=== PATIENT | male | born 1990 | race Hispanic/Latino ===

== ENCOUNTER 2019-05-31 22:22 | Emergency (ER) | payer BC ==
[2019-05-31] MEDS ORDERED: SIMETHICONE 80 MG TAB ONE (23:08)
[2019-06-01] MEDS ORDERED: NA CHLORIDE 0.9% 1,000 ML ONE (00:28)
[2019-06-01 00:53] LABS: Potassium 3.6 mmol/L (3.5-5.1)
[2019-06-01 00:57] LABS: Absolute Lymphocytes (CBC) 2.8 K/uL (0.7-4.9); Hematocrit 48.5 % (39.6-49.0); Lymphocytes % 34.6 % (15.3-44.8); MPV 8.4 fL (7.6-11.3); RBC Red Blood Cell Count 5.81 M/uL (4.33-5.43)
--- NOTE | 2019-06-01 02:18 | EDPHYS ---
Physician Documentation [facility] Name: Parish Lim Age: 28 yrs Sex: Male : 1990 Arrival Date: 05/31/2019 Time: 22:25 Bed 20 Private MD: ED Physician Vahid Tinsley HPI: 05/31 23:33 This 28 yrs old Male presents to ER via Ambulatory with complaints of Chest snw Pain, Chest Pressure, Shortness Of Breath. 23:33 Onset: The symptoms/episode began/occurred suddenly, while riding in vehicle on the way snw back from [place] eating [place]. Associated signs and symptoms: Pertinent positives: shortness of breath, diaphoresis. Modifying factors: The patient symptoms are alleviated by nothing, the patient symptoms are aggravated by nothing. The patient has not experienced similar symptoms in the past. It is unknown whether or not the patient has recently seen a physician. pt with laminectomy a few months ago, not sedentary but activity has been decreased, denies edema, leg pain, no significant family hx. Historical: - Allergies: 22:31 No Known Allergies; rv - PMHx: 22:31 None; rv - PSHx: 22:31 back sx; rv - Immunization history:: Adult Immunizations up to date, Last tetanus immunization: unknown. - Coronavirus screen:: The patient has NOT traveled to [place], [place], or [place] in the past 14 days. Proceed with normal triage process as indicated. The patient has NOT had contact with known/suspected case of Coronavirus? Proceed with normal triage procedures. - Social history:: Smoking status: Patient denies any tobacco usage or history of. - Ebola Screening: : No symptoms or risks identified at this time. ROS: 23:32 Constitutional: Negative for fever, chills, and weight loss, Eyes: Negative for injury, snw pain, redness, and discharge, ENT: Negative for injury, pain, and discharge, Neck: Negative for injury, pain, and swelling. 23:32 Abdomen/GI: Negative for abdominal pain, nausea, vomiting, diarrhea, and constipation, Back: Negative for injury and pain, : Negative for injury, bleeding, discharge, and swelling, MS/Extremity: Negative for injury and deformity, Neuro: Negative for headache, weakness, numbness, tingling, and seizure. 23:32 Cardiovascular: Positive for chest pain. 23:32 Respiratory: Positive for shortness of breath. 23:32 Skin: Positive for diaphoresis. Exam: 23:31 Head/Face: Normocephalic, atraumatic. Eyes: Pupils equal round and reactive to light, snw extra-ocular motions intact. Lids and lashes normal. Conjunctiva and sclera are non-icteric and not injected. Cornea within normal limits. Periorbital areas with no swelling, redness, or edema. ENT: Nares patent. No nasal discharge, no septal abnormalities noted. Tympanic membranes are normal and external auditory canals are clear. Oropharynx with moderate redness, no swelling, or masses, exudates, or evidence of obstruction, uvula midline. Mucous membranes moist. Neck: Trachea midline, no thyromegaly or masses palpated, and no cervical lymphadenopathy. Supple, full range of motion without nuchal rigidity, or vertebral point tenderness. No Meningismus. Chest/axilla: Normal chest wall appearance and motion. Nontender with no deformity. No lesions are appreciated. Cardiovascular: Regular rate and rhythm with a normal S1 and S2. No gallops, murmurs, or rubs. Normal PMI, no JVD. No pulse deficits. Respiratory: Lungs have equal breath sounds bilaterally, clear to auscultation and percussion. No rales, rhonchi or wheezes noted. No increased work of breathing, no retractions or nasal flaring. Abdomen/GI: Soft, non-tender, with normal bowel sounds. No distension or tympany. No guarding or rebound. No evidence of tenderness throughout. Back: No spinal tenderness. No costovertebral tenderness. Full range of motion. Skin: Warm, dry with normal turgor. Normal color with no rashes, no lesions, and no evidence of cellulitis. MS/ Extremity: Pulses equal, no cyanosis. Neurovascular intact. Full, normal range of motion. Neuro: Awake and alert, GCS 15, oriented to person, place, time, and situation. Cranial nerves II-XII grossly intact. Motor strength 5/5 in all extremities. Sensory grossly intact. Cerebellar exam normal. Normal gait. Psych: Awake, anxious, with orientation to person, place and time. Behavior, mood, and affect are within normal limits. 23:31 Constitutional: The patient appears awake, anxious, restless. Vital Signs: 22:30 BP 141 / 98; Pulse 79; Resp 18; Temp 98.2; Pulse Ox 99% ; Weight 86.18 kg; Height 5 ft. rv 11 in. (180.34 cm); Pain 3/10; 06/01 00:10 BP 128 / 82; Pulse 64; Resp 18; Pulse Ox 97% on R/A; wh 02:30 BP 126 / 84; Pulse 66; Resp 16; Pulse Ox 100% on R/A; rv 05/31 22:30 Body Mass Index 26.50 (86.18 kg, 180.34 cm) rv MDM: 05/31 22:38 Patient medically screened. snw 06/01 02:26 Data reviewed: vital signs, nurses notes. Data interpreted: Pulse oximetry: on room air snw is 97 %. Interpretation: normal. Counseling: I had a detailed discussion with the patient and/or guardian regarding: the historical points, exam findings, and any diagnostic results supporting the discharge/admit diagnosis, lab results, radiology results, the need for outpatient follow up, to return to the emergency department if symptoms worsen or persist or if there are any questions or concerns that arise at home. Response to treatment: the patient's symptoms have markedly improved after treatment. Special discussion: Based on the patient's history, exam, and Dx evaluation, there is no indication for emergent intervention or inpatient Tx. It is understood by the patient/guardian that if the Sx's persist or worsen they need to return immediately for re-evaluation. Based on the history and exam findings, there is no indication for further emergent testing or inpatient evaluation. I discussed with the patient/guardian the need to see the primary care provider for further evaluation of the symptoms. 05/31 22:56 Order name: Flu; Complete Time: 00:29 05/31 22:56 Order name: Strep; Complete Time: 00:29 rv 06/01 00:13 Order name: CBC with Diff; Complete Time: 01:03 snw 06/01 00:13 Order name: Chem 7; Complete Time: 00:54 snw 06/01 00:28 Order name: Throat Culture EDMS 06/01 01:49 Order name: Urine Dipstick--Ancillary (enter results) em1 05/31 22:56 Order name: Chest Pa And Lat (2 Views) XRAY rv 05/31 22:56 Order name: EKG; Complete Time: 22:57 rv 05/31 22:56 Order name: EKG - Nurse/Tech; Complete Time: 23:03 06/01 00:13 Order name: CT Chest For PE Angio snw Administered Medications: 05/31 23:18 Drug: Simethicone 240 mg Route: PO; 06/01 02:31 Follow up: Response: No adverse reaction rv 00:29 Drug: NS 0.9% 1000 ml Route: IV; Rate: 1 bolus; Site: left antecubital; 02:31 Follow up: IV Status: Completed infusion; IV Intake: 1000ml rv Disposition: 02:46 Co-signature as Attending Physician, Vahid Tinsley MD. rn Disposition: 06/01/19 02:18 Discharged to Home. Impression: Gas pain, Chest pain, unspecified. - Condition is Stable. - Discharge Instructions: Nonspecific Chest Pain, Intestinal Gas and Gas Pains, Pediatric. - Prescriptions for Gas- X Extra Strength - take 1 unit by ORAL route 1-3 times daily; 1 box. - Work release form, Medication Reconciliation Form, Thank You Letter, Antibiotic Education, Prescription Opioid Use form. - Follow up: Emergency Department; When: As needed; Reason: Worsening of condition. Follow up: Private Physician; When: 1 week; Reason: Recheck today's complaints, Continuance of care, Re-evaluation by your physician. Signatures: Dispatcher [employer] EDIA Susan Stiles, SUPERVISOR SALVAGE-C SUPERVISOR SALVAGE-Csnw Vahid Tinsley MD MD rn [place], Winsy Luke Oropeza RN RN rv Corrections: (The following items were deleted from the chart) 02:32 02:18 06/01/2019 02:18 Discharged to Home. Impression: Gas pain; Chest pain, rv unspecified. Condition is Stable. Forms are Medication Reconciliation Form, Thank You Letter, Antibiotic Education, Prescription Opioid Use. Follow up: Emergency Department; When: As needed; Reason: Worsening of condition. Follow up: Private Physician; When: 1 week; Reason: Recheck today's complaints, Continuance of care, Re-evaluation by your physician. snw
--- NOTE | 2019-06-01 02:18 | ER ---
Nurse's Notes [facility] Name: Parish Lim Age: 28 yrs Sex: Male : 1990 Arrival Date: 05/31/2019 Time: 22:25 Bed 20 Private MD: Diagnosis: Gas pain;Chest pain, unspecified Presentation: 05/31 22:28 Presenting complaint: Patient states: chest pain started 1330, aching and burning, rv palms are sweaty. starts feeling dizziness. left hand is numb. 2/10 pain scale. Transition of care: patient was not received from another setting of care. Onset of symptoms was May 31, 2019 at 20:30. Risk Assessment: Do you want to hurt yourself or someone else? Patient reports no desire to harm self or others. Initial Sepsis Screen: Does the patient meet any 2 criteria? No. Patient's initial sepsis screen is negative. Does the patient have a suspected source of infection? No. Patient's initial sepsis screen is negative. Care prior to arrival: None. 22:28 Method Of Arrival: Ambulatory rv 22:28 Acuity: KOJO 4 rv Historical: - Allergies: 22:31 No Known Allergies; rv - PMHx: 22:31 None; rv - PSHx: 22:31 back sx; rv - Immunization history:: Adult Immunizations up to date, Last tetanus immunization: unknown. - Coronavirus screen:: The patient has NOT traveled to [place], [place], or [place] in the past 14 days. Proceed with normal triage process as indicated. The patient has NOT had contact with known/suspected case of Coronavirus? Proceed with normal triage procedures. - Social history:: Smoking status: Patient denies any tobacco usage or history of. - Ebola Screening: : No symptoms or risks identified at this time. Screenin/27 00:00 Abuse screen: Denies threats or abuse. Denies injuries from another. Nutritional wh screening: No deficits noted. Tuberculosis screening: No symptoms or risk factors identified. Fall Risk None identified. Assessment: 05/31 23:45 General: Appears in no apparent distress. Behavior is calm, cooperative, appropriate wh for age. Pain: Complains of pain in chest Pain does not radiate. Pain currently is 2 out of 10 on a pain scale. Quality of pain is described as burning, Pain began 1 day ago. Neuro: Level of Consciousness is awake, alert, obeys commands, Oriented to person, place, time, situation, Appropriate for age. Cardiovascular: Heart tones S1 S2 Rhythm is regular. Respiratory: Airway is patent Respiratory effort is even, unlabored, Respiratory pattern is regular, symmetrical, Breath sounds are clear bilaterally. GI: Abdomen is flat, non-distended. : No signs and/or symptoms were reported regarding the genitourinary system. EENT: No signs and/or symptoms were reported regarding the EENT system. Derm: Skin is intact, is healthy with good turgor, Skin is pink, warm \T\ dry. normal. Musculoskeletal: Circulation, motion, and sensation intact. 06/01 00:10 Reassessment: Patient appears in no apparent distress at this time. No changes from previously documented assessment. Patient and/or family updated on plan of care and expected duration. Pain level reassessed. Patient is alert, oriented x 3, equal unlabored respirations, skin warm/dry/pink. 02:31 Reassessment: Patient appears in no apparent distress at this time. Patient states rv feeling better. Patient states symptoms have improved. Vital Signs: 05/31 22:30 BP 141 / 98; Pulse 79; Resp 18; Temp 98.2; Pulse Ox 99% ; Weight 86.18 kg; Height 5 ft. rv 11 in. (180.34 cm); Pain 3/10; 06/01 00:10 BP 128 / 82; Pulse 64; Resp 18; Pulse Ox 97% on R/A; wh 02:30 BP 126 / 84; Pulse 66; Resp 16; Pulse Ox 100% on R/A; rv 05/31 22:30 Body Mass Index 26.50 (86.18 kg, 180.34 cm) rv ED Course: 05/31 22:25 Patient arrived in ED. ag5 22:30 Triage completed. rv 22:32 Susan Stiles FNP-C [facility]. snw 22:32 Vahid Tinsley MD is Attending Physician. snw 22:34 Yen Jason is Primary Nurse. wh 23:39 Chest Pa And Lat (2 Views) XRAY In Process Unspecified. EDMS 06/01 00:00 Arm band placed on right wrist. wh 00:00 Patient has correct armband on for positive identification. Bed in low position. Call light in reach. Side rails up X 1. Pulse ox on. NIBP on. 00:00 Patient maintains SpO2 saturation greater than 95% on room air. 00:00 No provider procedures requiring assistance completed. Inserted saline lock: 20 gauge rv in left antecubital area, using aseptic technique. ,using aseptic technique. by yen Blood collected. 01:48 CT Chest For PE Angio In Process Unspecified. EDMS 02:32 IV discontinued, intact, bleeding controlled, No redness/swelling at site. Pressure rv dressing applied. Administered Medications: 05/31 23:18 Drug: Simethicone 240 mg Route: PO; 06/01 02:31 Follow up: Response: No adverse reaction rv 00:29 Drug: NS 0.9% 1000 ml Route: IV; Rate: 1 bolus; Site: left antecubital; 02:31 Follow up: IV Status: Completed infusion; IV Intake: 1000ml rv Intake: 02:31 IV: 1000ml; Total: 1000ml. rv Outcome: 02:18 Discharge ordered by . snw 02:32 Discharged to home ambulatory. rv 02:32 Condition: improved 02:32 Discharge instructions given to patient, Instructed on discharge instructions, follow up and referral plans. medication usage, Demonstrated understanding of instructions, follow-up care, medications, Prescriptions given X 1. 02:32 Patient left the ED. rv Signatures: Dispatcher [employer] EDIL Susan Stiles, PROJECT ADMINISTRATOR-C PROJECT ADMINISTRATOR-Yen Castro Luke Oropeza RN RN Elsie Dee [id number]
[2019-06-01 02:39] VITALS: TEMP 98.2
[2019-06-01 02:41] VITALS: BP 126/84; O2SAT 100
[2019-06-01 03:07] LABS: Urine Blood NEGATIVE (NEG); Urine Glucose NEGATIVE (NEG); Urine Protein NEGATIVE (NEG); Urine Specific Gravity 1.025 (1.005-1.030)
--- NOTE | 2019-06-01 06:56 | EKG ---
Test Date: 2019-05-31 Test Time: 22:38:38 Periodicals Library Assistant: LUKE MEASUREMENT RESULTS: Intervals: Rate: 75 AL: 192 QRSD: 100 QT: 370 QTc: 413 [place]: P: 53 AL: 192 QRS: 86 T: 70 INTERPRETIVE STATEMENTS: Normal sinus rhythm Normal ECG No previous ECG available for comparison Electronically Signed On 06-01-19 06:55:20 FLUE GAS ANALYST by Benny Gonzáles
--- NOTE | 2019-06-01 08:08 | RAD REPORT ---
EXAM DESCRIPTION: Azael Cates (2 Views)05/31/2019 11:40 pm CLINICAL HISTORY: Chest pain COMPARISON: None FINDINGS: The lungs appear clear of acute infiltrate. The heart is normal size IMPRESSION: No acute abnormalities displayed
--- NOTE | 2019-06-01 12:08 | RAD REPORT ---
EXAM DESCRIPTION: CT - Chest For Pe Angio - 06/01/2019 5:19 am CLINICAL HISTORY: 28-year-old male with chest pain. TECHNIQUE: Following the administration of intravenous contrast, multiple high-resolution axial imag es of the chest were performed followed by sagittal and coronal reconstructed images. Coronal oblique MIP images were also performed. The CT study is performed according to ALARA (as low as reasonably a chievable) or ALARA/IMAGE GENTLY, with automatic adjustment of mA and/or kV according to patient size . Performed on: 06/01/2019 at 1:23 AM COMPARISON: None FINDINGS: There is satisfactory visualization and contrast opacification of pulmonary arteries. No definite intra-arterial filling defects are identified to suggest acute or chronic pulmonary embolis m. The thoracic aorta is normal in caliber and contour without evidence of aneurysm or dissection. The lungs are well expanded and are clear. There is no evidence of a pneumothorax. There are no pleur al effusions. The heart is normal in size. There is no pericardial effusion. There is no evidence of hilar, mediastinal or axillary lymphadenopathy. No acute osseous abnormality is identified. The visualized upper abdominal structures are unremarkable. IMPRESSION: 1. No CT evidence to suggest acute or chronic pulmonary embolism, aortic aneurysm or aor tic dissection. 2. No evidence of acute intrathoracic disease. Electronically signed by: Sarah Dickens DO 06/01/2019 1:59 AM HOSPITAL MANAGER Due to temporary technical issues with the PACS/Fluency reporting system, reports are being signed by the in house radiologist as a courtesy to ensure prompt reporting. The interpreting radiologist is f ully responsible for the content of the report.
== END 2019-06-01 02:32 | disposition home or self-care (01) ==
LOC: ER 22:22
DX: R14.1 Gas pain (principal)
CPT/HCPCS: 96361; 93005; 87070; 85025; 80048; 36415; 87081; 81003; 87804 ×2; 71275; 71046; 96360; 99284; Q9967; J7030